=== PATIENT | female | born 1965 | race Caucasian/White ===

== ENCOUNTER → 2023-11-10 08:39 | Outpatient (REF) | payer MEDICARE, OTHER, SELFPAY | LOC: WDC 08:39 | PROVIDERS: ATTENDING PHYSICIAN Obstetrics & Gynecology; FAMILY PHYSICIAN Family Medicine | DX: Z12.31 Encounter for screening mammogram for malignant neoplasm of breast (principal) | CPT/HCPCS: 77063; 77067 ==

== ENCOUNTER 2023-11-26 09:27 | Outpatient (RCR) | payer MEDICARE, OTHER, SELFPAY | END 2023-11-26 23:59 | disposition home or self-care (01) | LOC: RPT 09:27 | PROVIDERS: ATTENDING PHYSICIAN Obstetrics & Gynecology; FAMILY PHYSICIAN Family Medicine | DX: R10.9 Unspecified abdominal pain (principal); Z73.6 Limitation of activities due to disability; M62.81 Muscle weakness (generalized); L90.5 Scar conditions and fibrosis of skin | CPT/HCPCS: 97163; 97530 ==

== ENCOUNTER → 2023-11-27 14:18 | Outpatient (REF) | payer MEDICARE, OTHER, SELFPAY | LOC: HWRAD 14:18 | PROVIDERS: ATTENDING PHYSICIAN Family Medicine | DX: R07.89 Other chest pain (principal); R06.02 Shortness of breath | CPT/HCPCS: 71275; Q9967 ==

== ENCOUNTER 2024-01-01 14:06 | Outpatient (RCR) | payer MEDICARE, OTHER, SELFPAY | END 2024-01-01 23:59 | disposition home or self-care (01) | LOC: RPT 14:06 | PROVIDERS: ATTENDING PHYSICIAN Obstetrics & Gynecology; FAMILY PHYSICIAN Family Medicine | DX: R10.9 Unspecified abdominal pain (principal); M62.81 Muscle weakness (generalized); L90.5 Scar conditions and fibrosis of skin; Z73.6 Limitation of activities due to disability | CPT/HCPCS: 97110; 97140; 97530 ==

== ENCOUNTER 2024-02-02 07:53 | Outpatient (RCR) | payer MEDICARE, OTHER, SELFPAY | END 2024-02-02 23:59 | disposition home or self-care (01) | LOC: RPT 07:53 | PROVIDERS: ATTENDING PHYSICIAN Obstetrics & Gynecology; FAMILY PHYSICIAN Family Medicine | DX: R10.9 Unspecified abdominal pain (principal); M62.81 Muscle weakness (generalized); L90.5 Scar conditions and fibrosis of skin; Z73.6 Limitation of activities due to disability | CPT/HCPCS: 97110; 97112; 97140; 97530 ==

== ENCOUNTER 2024-02-27 06:42 | Outpatient (RCR) | payer MEDICARE, OTHER, SELFPAY | END 2024-02-27 23:59 | disposition home or self-care (01) | LOC: RPT 06:42 | PROVIDERS: ATTENDING PHYSICIAN Obstetrics & Gynecology; FAMILY PHYSICIAN Family Medicine | DX: R10.9 Unspecified abdominal pain (principal); M62.81 Muscle weakness (generalized); L90.5 Scar conditions and fibrosis of skin; Z73.6 Limitation of activities due to disability | CPT/HCPCS: 97110; 97140; 97530 ==

== ENCOUNTER 2024-03-26 09:57 | Outpatient (RCR) | payer MEDICARE, OTHER, SELFPAY | END 2024-03-26 23:59 | disposition home or self-care (01) | LOC: RPT 09:57 | PROVIDERS: ATTENDING PHYSICIAN Obstetrics & Gynecology; FAMILY PHYSICIAN Family Medicine | DX: R10.9 Unspecified abdominal pain (principal); M62.81 Muscle weakness (generalized); L90.5 Scar conditions and fibrosis of skin; Z73.6 Limitation of activities due to disability | CPT/HCPCS: 97110; 97112; 97140; 97530 ==

== ENCOUNTER 2024-04-23 10:01 | Outpatient (RCR) | payer MEDICARE, OTHER, SELFPAY | END 2024-04-23 23:59 | disposition home or self-care (01) | LOC: RPT 10:01 | PROVIDERS: ATTENDING PHYSICIAN Obstetrics & Gynecology; FAMILY PHYSICIAN Family Medicine | DX: R10.9 Unspecified abdominal pain (principal); L90.5 Scar conditions and fibrosis of skin; M62.81 Muscle weakness (generalized); Z73.6 Limitation of activities due to disability | CPT/HCPCS: 97110; 97112; 97140; 97530 ==

== ENCOUNTER 2024-05-06 07:47 | Outpatient (RCR) | payer MEDICARE, OTHER, SELFPAY | END 2024-05-06 23:59 | disposition home or self-care (01) | LOC: RPT 07:47 | PROVIDERS: ATTENDING PHYSICIAN Podiatrist; FAMILY PHYSICIAN Family Medicine | DX: M72.2 Plantar fascial fibromatosis (principal); Z73.6 Limitation of activities due to disability; M79.671 Pain in right foot | CPT/HCPCS: 97010; 97110; 97112; 97140; 97162 ==

== ENCOUNTER 2024-06-02 08:50 | Outpatient (RCR) | payer MEDICARE, OTHER, SELFPAY | END 2024-06-02 23:59 | disposition home or self-care (01) | LOC: RPT 08:50 | PROVIDERS: ATTENDING PHYSICIAN Podiatrist; FAMILY PHYSICIAN Family Medicine | DX: M72.2 Plantar fascial fibromatosis (principal); Z73.6 Limitation of activities due to disability; M79.671 Pain in right foot | CPT/HCPCS: 97010; 97110; 97112; 97140 ==

== ENCOUNTER 2024-06-15 16:13 | Emergency (ER) | payer MEDICARE, OTHER, SELFPAY ==
[2024-06-15 16:15] VITALS: BP 141/81
[2024-06-15 16:45] LABS: % Basophils 0.5 % (0-2); % Eosinophils 0.8 % (0-6); % Lymphocytes 37.7 % (20.5-51.1); % Monocytes 6.2 % (1.7-9.3); % Neutrophils 54.8 % (42.2-75.2); Absolute Eosinophils 0.1 10^3/uL (0-0.7); Absolute Lymphocytes 2.3 10^3/uL (1.2-3.4); Absolute Monocytes 0.4 10^3/uL (0.1-0.6); Absolute Neutrophils 3.3 10^3/uL (1.4-6.5); Hematocrit 38.8 % (37.0-47.0); Hemoglobin 12.9 g/dL (12.0-16.0); Mean Corp Hgb Conc. 33.2 g/dL (33.0-37.0); Mean Corpuscular Hgb 30.2 pg (27.0-31.0); Mean Corpuscular Volume 90.9 fL (81.0-99.0); Mean Platelet Volume 10.4 fL (7.4-10.4); Nucleated Red Blood Cells % 0 %; Platelet Count 264 10^3/uL (130-400); Red Blood Cell Count 4.27 10^6/uL (4.20-5.40); Red Cell Dist. Width 14.4 % (11.5-14.5)
[2024-06-15 16:57] LABS: ALT (SGPT) 39 U/L (0-35); AST (SGOT) 40 U/L (14-36); Albumin 4.8 g/dl (3.5-5.0); Alkaline Phosphatase 107 U/L (38-126); Blood Urea Nitrogen 22 mg/dl (7-17); Calcium 9.7 mg/dl (8.4-10.2); Carbon Dioxide 30 mmol/L (22-30); Chloride 102 mmol/L (98-107); Glucose 104 mg/dl (70-99); Lipase 103 U/L (23-300); Potassium 3.8 mmol/L (3.5-5.1); Sodium 143 mmol/L (135-145); Total Bilirubin 0.2 mg/dl (0.2-1.3); eGFR > 60.00
[2024-06-15 17:11] LABS: Troponin I < 0.012 ng/ml
--- NOTE | 2024-06-15 19:30 | ED.GENMED ---
History of Present Illness
General
Chief Complaint: Dizziness
Time Seen by Provider: 06/15/24 19:20
History of Present Illness
History of Present Illness:
Patient presents to the emergency department with diarrhea and lightheadedness. She had 1 episode of diarrhea this morning and 1 episode last night. She reports today she was feeling lightheaded and mild chest pressure that began this morning
around 9 AM. Notes that she has also been having some left mid back pain. Denies any shortness of breath. Denies any leg swelling.
Past History
Past History
ED Past Medical History: Asthma, Cancer (Skin CA), GERD, Hypercholesterolemia and Other (Lumbar disc disease, external hemorrhoids, Left neck pian with stiffness since 2021,Sleep apnea); Negative HTN or NIDDM
ED Past Surgical History: Cholecystectomy, , Gynecological (Fibroids, D&C, Partial hysterectomy, Tubal), Orthopedic (Right rotator cuff surgery), Tonsilectomy and Other (Deviated septum repair, Omar eye surgery, Uvuloplasty)
Social History
Tobacco: Non-smoker
Alcohol: Occasional
Drug: None
Personal:
Living: alone
Family History
Family History: CAD
Phy Exam
Physical Exam
Physical Exam:
GENERAL APPEARANCE: NAD, well developed/ well nourished
EYES lids/conjunctiva normal
EARS/NOSE/THROAT Mucous membranes moist, uvula midline without oral pharyngeal erythema, exudate or swelling
HEAD/NECK normocephalic atraumatic, neck is supple.
RESPIRATORY respiratory effort normal, speaks in full sentences, no accessory muscle use. Lungs clear to auscultation without rhonchi, wheezes, rales
CARDIAC Regular rate and rhythm, no edema.
ABDOMINAL Soft, ND/NT. No pulsatile masses on exam, rebound tenderness, Cobb sign or pain over Mcburney's point.
MUSCLES/EXTREMITIES No abnormal range of motion, no swelling.
BACK point tenderness to intercostal muscles to left back region.no visible changes
SKIN Warm, pink and dry. No rashes
NEUROLOGICAL Speech is clear and appropriate. Normal level of consciousness. 5/5 strength in all extremities.
PSYCH Normal mood and affect. Judgement/competence is appropriate
Course
Orders/Labs/Results
Orders:
Orders
06/15/24 16:21
Electrocardiogram (*1) Urgent
Reason for Study: Vertigo / Dizzy
EKG- Treatment ONCE
06/15/24 16:28
Complete Blood Count/With Diff Urgent
Comprehensive Metabolic Panel Urgent
Lipase Urgent
Troponin I Urgent
06/15/24 19:30
CR Chest - 2 Views Urgent
Comment:
Reason For Exam: chest pain
06/15/24 20:37
Urinalysis Reflex To Culture Urgent
Date Specimen was Collected: 06/15/24
Time Specimen was Collected: 20:35
Urine Microscopic Reflex Cult Urgent
Urine Culture Urgent
PRASAD Source: U
Specimen Description:
Date Specimen was Collected: 06/15/24
Time Specimen was Collected: 20:35
06/15/24 20:51
Ketorolac [Toradol] 15 mg IV NOW STA
06/15/24 20:58
Ketorolac [Toradol] 15 mg IM NOW STA
Abnormal Lab Results
06/15/24 06/15/24
16:28 20:37
BUN 22 H mg/dl
(7-17)
Glucose 104 H mg/dl
(70-99)
AST 40 H U/L
(14-36)
ALT 39 H U/L
(0-35)
Leukocyte Esterase Rfl 1+ A
(Negative)
Urine Bacteria (Reflex) Few A
(Negative)
06/15/24 16:28
06/15/24 16:28
Vital Signs
Initial and Last Documented VS:
Initial Vital Signs
Temp Pulse Resp BP Pulse Ox
97.8 F 64 16 141/81 99
06/15/24 16:15 06/15/24 16:15 06/15/24 16:15 06/15/24 16:15 06/15/24 16:15
Last Documented Vital Signs
Temp Pulse Resp BP Pulse Ox
97.8 F 67 18 115/68 99
06/15/24 16:15 06/15/24 22:24 06/15/24 22:24 06/15/24 19:54 06/15/24 22:24
*Critical Care Note
Total Time (30-74mins, 75-104mins- exclusive of procedures): Not Applicable
ED Attending Note
-
Portions of this chart may have been created with voice recognition software.� Occasional wrong word or��sound alike� substitutions may have occurred due to the inherent limitations of voice recognition software.
Discharge Plan
Departure
Patient Disposition: Home (Routine Discharge)
Date of Disposition: 06/15/24
Time of Disposition: 22:04
Patient with high blood pressure during this ER visit?: Yes
Discharge Problem:
Diarrhea, Chest wall pain
Instructions: Acute Diarrhea
Prescriptions:
No Action
Gnc Vitamin For Energy And Met
2 tablets PO DAILY
ascorbic acid (vitamin C) [Vitamin C] 1,000 mg Tablet
1,000 mg PO DAILY
esomeprazole magnesium 40 mg Capsule,Delayed Release(Dr/Ec)
40 mg PO DAILY
triamcinolone acetonide [Nasacort] 55 mcg Aerosol,[place]
2 spray INTRANASAL DAILY
acetaminophen 500 mg Capsule
1,000 mg PO PRN PRN (Reason: pain)
berberine-herbal comb no.18 Capsule
2 cap PO DAILY
Pepcid Complete 10-800-165 mg Tablet,Chewable
1 tab PO PRN PRN (Reason: indigestion)
levocetirizine [Xyzal] 5 mg Tablet
5 mg PO QPM
Caltrate Bone Health Advanced
1 tab PO DAILY
Elderberry Syrup Vitaminc Zinc
10 ml PO DAILY
diclofenac sodium 100 GM gel
1 gm topical PRN PRN (Reason: pain)
Culturelle Probiotic
1 cap PO DAILY
polyethylene glycol 3350 [Miralax] 17 gram/dose Powder
17 g PO PRN PRN (Reason: constipation)
Referrals:
Jose Guadalupe Calzada DO [Family Provider] -
Activity Restrictions/Additional Instructions:
Please follow-up with your doctor for outpatient management and workup. Return to the emergency department with new or worsening
Interventions
Interventions:
*Risk Screen - Suicide Last Done: 06/15/24 19:52
*General Assessment Last Done: 06/15/24 19:52
*Neglect/Abuse Screening Last Done: 06/15/24 19:52
ED- Fall Risk Assessment Last Done: 06/15/24 20:00
*ED COVID-19 Vaccine History Last Done: 06/15/24 19:52
*Nursing Disposition Last Done: 06/15/24 22:24
ED- Neurological Assessment Last Done: 06/15/24 20:00
ED- Cardiac Assessment Last Done: 06/15/24 20:00
ED Swallowing Screen Last Done: 06/15/24 20:00
Discharge Date and Time
Discharge Date/Time: 06/15/24 22:15
Print Language: HEBREW
[2024-06-15 19:54] VITALS: BP 115/68
[2024-06-15 20:49] LABS: Urine Albumin Negative (Neg - Trace); Urine Bilirubin Negative (Negative); Urine Character Clear (Clear); Urine Color Yellow; Urine Glucose Negative (Negative); Urine Ketone Negative (Negative); Urine Leukocyte 1+ (Negative); Urine Nitrite Negative (Negative); Urine Occult Blood Negative (Negative); Urine Specific Gravity 1.025 (<1.030); Urine Urobilinogen Negative (Neg - 1+)
[2024-06-15] MEDS: TORADOL 15 MG IM (20:59)
[2024-06-15 21:51] LABS: Urine Red Blood Cell 0-2 /HPF (0-2); Urine Squamous Cell 16-20 /LPF (Few)
[2024-06-15 21:52] LABS: Urine Bacteria Few (Negative)
== END 2024-06-15 22:15 | disposition home or self-care (01) ==
LOC: EMR 16:13
PROVIDERS: Student in an Organized Health Care Education/Training Program; EMERGENCY PHYSICIAN Emergency Medicine; FAMILY PHYSICIAN Family Medicine
DX: R19.7 Diarrhea, unspecified (principal); R07.89 Other chest pain; M54.6 Pain in thoracic spine; J45.909 Unspecified asthma, uncomplicated; K21.9 Gastro-esophageal reflux disease without esophagitis; E78.00 Pure hypercholesterolemia, unspecified; G47.30 Sleep apnea, unspecified; Z82.49 Family history of ischemic heart disease and other diseases of the circulatory system; Z85.828 Personal history of other malignant neoplasm of skin; Z87.19 Personal history of other diseases of the digestive system; Z90.49 Acquired absence of other specified parts of digestive tract
CPT/HCPCS: 99283; 96374; 96372; 71046; 80053; 81003; 81015; 83690; 84484; 85025; 87086; 93005

== ENCOUNTER 2024-06-18 06:18 | Outpatient (RCR) | payer MEDICARE, OTHER, SELFPAY | END 2024-06-18 10:36 | disposition home or self-care (01) | LOC: RPT 06:18 | PROVIDERS: ATTENDING PHYSICIAN Podiatrist; FAMILY PHYSICIAN Family Medicine | DX: M72.2 Plantar fascial fibromatosis (principal); Z73.6 Limitation of activities due to disability; M79.671 Pain in right foot | CPT/HCPCS: 97010; 97110; 97112; 97140 ==

== ENCOUNTER → 2024-08-07 10:47 | Outpatient (REF) | payer MEDICARE, OTHER, SELFPAY | LOC: RAD 10:47 | PROVIDERS: ATTENDING PHYSICIAN Family Medicine | DX: E78.2 Mixed hyperlipidemia (principal); Z13.6 Encounter for screening for cardiovascular disorders | CPT/HCPCS: 75571 ==

== ENCOUNTER → 2024-08-16 10:47 | Outpatient (REF) | payer MEDICARE, OTHER, SELFPAY | LOC: HWRCS 10:47 | PROVIDERS: ATTENDING PHYSICIAN Internal Medicine Cardiovascular Disease; FAMILY PHYSICIAN Family Medicine | DX: I31.39 Other pericardial effusion (noninflammatory) (principal); R07.89 Other chest pain | CPT/HCPCS: 93306 ==

== ENCOUNTER → 2024-08-24 07:31 | Outpatient (REF) | payer MEDICARE, OTHER, SELFPAY | LOC: HWRCS 07:31 | PROVIDERS: ATTENDING PHYSICIAN Internal Medicine Cardiovascular Disease; FAMILY PHYSICIAN Family Medicine | DX: Q27.8 Other specified congenital malformations of peripheral vascular system (principal); R07.89 Other chest pain | CPT/HCPCS: 78452; 93017; A9500; J2785 ==

== ENCOUNTER → 2024-09-17 16:15 | Outpatient (REF) | payer MEDICARE, OTHER, SELFPAY | LOC: REG 16:15 | PROVIDERS: ATTENDING PHYSICIAN Internal Medicine Gastroenterology; FAMILY PHYSICIAN Family Medicine | DX: R19.7 Diarrhea, unspecified (principal) | CPT/HCPCS: 83993; 87045; 87046; 87077; 87324; 87328; 87329; 87427; 87449 ==

== ENCOUNTER 2024-09-18 23:13 | Emergency (ER) | payer MEDICARE, OTHER, SELFPAY ==
[2024-09-18 23:14] VITALS: BP 140/88
[2024-09-18 23:54] LABS: Hematocrit 34.3 % (37.0-47.0); Hemoglobin 11.6 g/dL (12.0-16.0); Mean Corp Hgb Conc. 33.8 g/dL (33.0-37.0); Mean Corpuscular Hgb 29.1 pg (27.0-31.0); Mean Platelet Volume 10.6 fL (7.4-10.4); Platelet Count 191 10^3/uL (130-400); Red Blood Cell Count 3.99 10^6/uL (4.20-5.40); Red Cell Dist. Width 14.5 % (11.5-14.5); White Blood Cell Count 3.6 10^3/uL (4.8-10.8)
[2024-09-19 00:09] LABS: ALT (SGPT) 30 U/L (0-35); AST (SGOT) 33 U/L (14-36); Albumin 3.7 g/dl (3.5-5.0); Alkaline Phosphatase 105 U/L (38-126); Blood Urea Nitrogen 14 mg/dl (7-17); Calcium 8.9 mg/dl (8.4-10.2); Carbon Dioxide 24 mmol/L (22-30); Chloride 101 mmol/L (98-107); Glucose 146 mg/dl (70-99); Potassium 3.1 mmol/L (3.5-5.1); Sodium 135 mmol/L (135-145); Total Bilirubin 0.4 mg/dl (0.2-1.3); Total Protein 6.7 g/dl (6.3-8.2); eGFR > 60.00
[2024-09-19 00:16] LABS: Absolute Neutrophils -Man Diff 2.7 10^3/uL (1.4-6.5); Band Neutrophils 32 % (0-3); Lymphocytes 21 % (20-51); Monocytes 4 % (2-9); Normal RBC Morphology Yes; Platelets Checked Yes; Segmented Neutrophils 43 % (42-75)
[2024-09-19 00:17] LABS: Total Cells Counted 100
[2024-09-19 00:51] VITALS: BP 98/68; BMI 29.6
[2024-09-19] MEDS: NSS 1000 IV ×2 (01:04→03:38)
--- NOTE | 2024-09-19 01:17 | ED.GENMED ---
History of Present Illness
General
Chief Complaint: Abdominal Pain
Source: patient
Exam Limitations: none
Time Seen by Provider: 09/19/24 00:55
History of Present Illness
History of Present Illness:
59-year-old female presents with fever lower abdominal pain and diarrhea onset yesterday. She just returned from a trip to [facility], 2 days prior. Upon return she had lobster biscuit from [place] and feels as though this may have been contaminated. She
denies any blood in the vomit or the stool. Spoke with her family doctor who sent her here for evaluation of treatment.
Past History
Past History
ED Past Medical History: Asthma, Cancer (Skin CA), GERD, Hypercholesterolemia and Other (Lumbar disc disease, external hemorrhoids, Left neck pian with stiffness since 2021,Sleep apnea); Negative HTN or NIDDM
ED Past Surgical History: Cholecystectomy, , Gynecological (Fibroids, D&C, Partial hysterectomy, Tubal), Orthopedic (Right rotator cuff surgery), Tonsilectomy and Other (Deviated septum repair, Omar eye surgery, Uvuloplasty)
Social History
Tobacco: Non-smoker
Alcohol: Occasional
Drug: None
Personal:
Living: alone
Family History
Family History: CAD
Phy Exam
Physical Exam
Physical Exam:
General: Well appearing female, NAD,
HEENT: Nc/AT
HEart:RRR
Lungs: CTA
Abd: soft, diffusely tender
Ext: No cyanosis or edema
Skin: warm, no rash
Course
Orders/Labs/Results
Orders:
Orders
09/18/24 23:24
CMP [Comprehensive Metabolic Panel] Urgent
Complete Blood Count/With Diff Urgent
Manual Differential Urgent
09/19/24 01:03
CT Abd/pelvis W Iv Cont Urgent
Comment:
Reason For Exam: abdominal pain, diarrhea
09/19/24 01:04
0.9% Sodium Chloride 1000 ml [Nss] 1,000 ml IV BOLUS
09/19/24 02:04
Famotidine [Pepcid] 20 mg IV NOW STA
09/19/24 03:21
0.9% Sodium Chloride 1000 ml [Nss] 1,000 ml IV BOLUS
Abnormal Lab Results
09/18/24
23:24
WBC 3.6 L 10^3/uL
(4.8-10.8)
RBC 3.99 L 10^6/uL
(4.20-5.40)
Hgb 11.6 L g/dL
(12.0-16.0)
Hct 34.3 L %
(37.0-47.0)
MPV 10.6 H fL
(7.4-10.4)
Band Neutrophils 32 H %
(0-3)
Potassium 3.1 L mmol/L
(3.5-5.1)
Glucose 146 H mg/dl
(70-99)
09/18/24 23:24
09/18/24 23:24
Vital Signs
Initial and Last Documented VS:
Initial Vital Signs
Temp Pulse Resp BP Pulse Ox
98 F 92 20 140/88 97
09/18/24 23:14 09/18/24 23:14 09/18/24 23:14 09/18/24 23:14 09/18/24 23:14
Last Documented Vital Signs
Temp Pulse Resp BP Pulse Ox
99.4 F 82 20 121/66 99
09/19/24 00:51 09/19/24 00:51 09/18/24 23:14 09/19/24 03:00 09/19/24 03:00
MDM/Problems Addressed
Differential Diagnosis Includes:
Abdominal pain and diarrhea recent return from trip to [facility],. Question viral illness versus traveler's diarrhea versus electrolyte abnormality. Consider colitis given her tenderness. CT pending. Fluids ordered
*Critical Care Note
Total Time (30-74mins, 75-104mins- exclusive of procedures): Not Applicable
Update Note
Update Note:
CT shows colitis. Stool studies reviewed from outpatient which are still pending. Labs reviewed without significant finding. She is afebrile here. She received 2 L of fluid. Going to prescribe Bentyl however she is allergic. Will prescribe
Lomotil. Hold off on antibiotics pending stool cultures. Discussed with emergency room attending. Will discharge
ED Attending Note
-
Portions of this chart may have been created with voice recognition software.� Occasional wrong word or��sound alike� substitutions may have occurred due to the inherent limitations of voice recognition software.
Discharge Plan
Departure
Patient Disposition: Home (Routine Discharge)
Date of Disposition: 09/19/24
Time of Disposition: 03:45
Patient with high blood pressure during this ER visit?: No
Discharge Problem:
Diarrhea
Instructions: Diarrhea in teens and adults
Prescriptions:
New
diphenoxylate-atropine 2.5-0.025 mg/5 mL liquid
5 ml PO Q8H PRN (Reason: diarrhea) Qty: 60 0RF
No Action
Gnc Vitamin For Energy And Met
2 tablets PO DAILY
ascorbic acid (vitamin C) [Vitamin C] 1,000 mg Tablet
1,000 mg PO DAILY
esomeprazole magnesium 40 mg Capsule,Delayed Release(Dr/Ec)
40 mg PO DAILY
triamcinolone acetonide [Nasacort] 55 mcg Aerosol,[place]
2 spray INTRANASAL DAILY
acetaminophen 500 mg Capsule
1,000 mg PO PRN PRN (Reason: pain)
Pepcid Complete 10-800-165 mg Tablet,Chewable
1 tab PO PRN PRN (Reason: indigestion)
levocetirizine [Xyzal] 5 mg Tablet
5 mg PO QPM
Caltrate Bone Health Advanced
1 tab PO DAILY
Elderberry Syrup Vitaminc Zinc
10 ml PO DAILY
diclofenac sodium 100 GM gel
1 gm topical PRN PRN (Reason: pain)
Culturelle Probiotic
1 cap PO DAILY
polyethylene glycol 3350 [Miralax] 17 gram/dose Powder
17 g PO PRN PRN (Reason: constipation)
aspirin 81 mg Capsule
81 mg PO DAILY
Glucocil
2 cap PO DAILY
Referrals:
Jose Guadalupe Calzada DO [Family Provider] -
Activity Restrictions/Additional Instructions:
Continue to drink plenty clear liquids. Use Lomotil as needed for diarrhea. Return here for worsening symptoms
Interventions
Interventions:
*Risk Screen - Suicide Last Done: 09/18/24 23:14
*General Assessment Last Done: 09/19/24 00:44
*Neglect/Abuse Screening Last Done: 09/18/24 23:14
*ED- Fall Risk Assessment Last Done: 09/19/24 01:34
*ED COVID-19 Vaccine History Last Done: 09/19/24 00:44
HZ-Idwaed-Aiiimehtfk Assessment Last Done: 09/19/24 00:46
Discharge Date and Time
Print Language: [id number]
[2024-09-19 02:03] VITALS: BP 105/63
[2024-09-19] MEDS: PEPCID 20 MG IV (02:06)
[2024-09-19 02:08] VITALS: BP 105/63
[2024-09-19 03:00] VITALS: BP 121/66
[2024-09-19 04:00] VITALS: BP 122/71
== END 2024-09-19 04:50 | disposition home or self-care (01) ==
LOC: EMR 23:13
PROVIDERS: EMERGENCY PHYSICIAN Emergency Medicine; FAMILY PHYSICIAN Family Medicine
DX: R19.7 Diarrhea, unspecified (principal); R50.9 Fever, unspecified; R10.30 Lower abdominal pain, unspecified; J45.909 Unspecified asthma, uncomplicated; K21.9 Gastro-esophageal reflux disease without esophagitis; E78.00 Pure hypercholesterolemia, unspecified; G47.30 Sleep apnea, unspecified; Z82.49 Family history of ischemic heart disease and other diseases of the circulatory system; Z85.828 Personal history of other malignant neoplasm of skin; Z87.19 Personal history of other diseases of the digestive system; Z90.49 Acquired absence of other specified parts of digestive tract
CPT/HCPCS: 99284; 96374; 96361; 74177; 80053; 85025; Q9967

== ENCOUNTER → 2024-11-02 09:48 | Outpatient (REF) | payer MEDICARE, OTHER, SELFPAY | LOC: WDC 09:48 | PROVIDERS: ATTENDING PHYSICIAN Obstetrics & Gynecology; FAMILY PHYSICIAN Family Medicine | DX: N64.4 Mastodynia (principal) | CPT/HCPCS: 76642; 77062; 77066 ==

== ENCOUNTER 2024-11-16 06:17 | Day surgery (SDC) | payer MEDICARE, OTHER, SELFPAY | END 2024-11-16 11:10 | disposition home or self-care (01) | LOC: GI 06:17 | PROVIDERS: ATTENDING PHYSICIAN Internal Medicine Gastroenterology | DX: Z12.11 Encounter for screening for malignant neoplasm of colon (principal); D12.4 Benign neoplasm of descending colon; K57.30 Diverticulosis of large intestine without perforation or abscess without bleeding; Q43.8 Other specified congenital malformations of intestine; K64.8 Other hemorrhoids; Z86.0100 Personal history of colon polyps, unspecified; Z83.719 Family history of colon polyps, unspecified | CPT/HCPCS: 45380; 88305 ==